=== PATIENT | female | born 1995 | race Caucasian/White ===

== ENCOUNTER 2016-12-17 09:47 | Emergency (ER) | payer OTHER ==
--- NOTE | 2016-12-17 11:02 | ED CLINICAL REPORT ---
Clinical Report - Physicians/Mid Levels [facility] [address] [place] [address] 12/17/2016 9:49 Patient: AN MORALES Time Seen: 09:53. Arrived- By private vehicle. Historian- patient. HISTORY OF PRESENT ILLNESS Chief Complaint: NECK PAIN. Onset was today and it is still present. Modifying factors. (Straightening her neck or moving her head to the right laterally causes pain in the right neck. Moving her head laterally to the left improves the pain.). It is described as being moderate in degree and in the area of the right side of the cervical spine and right trapezius and radiating to the right shoulder. The quality is noted to be "pain". Patient notes an injury. Mechanism of injury- (the patient states that she was stretching this morning while waking up in bed when she "pulled" her neck. Patient states she had her arm stretched above her head and rotated her head to the left when she suddenly felt a pop on the right side. She had a sudden pain which caused her to feel dizzy and had a brief loss of consciousness. Patient denies any pain in the spine itself. She denies any history of neck issues. Patient has otherwise been feeling fine. She states that now her neck is painful and stiff and that she has to keep her head cocked to the left side because if she straightens her neck out and causes pain in the lateral right neck.). No other injury. Similar symptoms previously: None. Recent medical care: Not recently seen/assessed. REVIEW OF SYSTEMS No fever, chills, eye discomfort, headache or sore throat. No cough, difficulty breathing, chest pain, skin rash or abdominal pain. No nausea, vomiting, diarrhea, black stools or difficulty with urination. No urinary frequency, hematuria or bloody stools. All systems otherwise negative, except as recorded above. PAST HISTORY Problems: Headache. Asthma. Additional Surgeries: . Medications: None. Allergies: Benadryl. Penicillin. Robitussin. SOCIAL HISTORY Former smoker. Occasional alcohol use. History of drug use: marijuana. ADDITIONAL NOTES The nursing notes have been reviewed. PHYSICAL EXAM Vital Signs: 12/17/2016 09:58 BP: 105/48. HR: 87. RR: 20. O2 saturation: 100%. Temp: 98.4 F. Have been reviewed. Appearance: Alert. No acute distress. HEENT: Normal external inspection. Eyes: Pupils equal, round and reactive to light. Neck: Moderate pain in the neck upon movement (with right lateral movement of the neck). No vertebral tenderness. Soft tissue tenderness (Patient has moderate tenderness over the superior most aspect of the right trapezius distribution.). No lymphadenopathy or meningeal signs. CVS: Normal heart rate and rhythm. Heart sounds normal. Pulses normal. Respiratory: No respiratory distress. Breath sounds normal. Back: Normal inspection. No tenderness. Skin: Skin warm and dry. Normal skin color. No rash. Normal skin turgor. Extremities: Extremities exhibit normal ROM. Neuro: Oriented X 3. Mood/affect normal. No motor deficit. No sensory deficit. LABS, X-RAYS, AND EKG Pulse Oximetry: 12/17/2016 09:58 O2 saturation: 100%. (FIO2 - room air). Interpretation: normal. PROGRESS AND PROCEDURES Course of Care: I did treat the patient symptomatically with IM Toradol, Flexeril, and hydrocodone. Patient was also given Zofran as she did feel nauseated after receiving the above medications. I discussed with the patient that I do not find evidence of a an emergent condition at this point. There is no evidence that the patient has injured her cervical spine and patient has no neurologic deficits. I discussed with her that most likely she has a muscle strain involving her right trapezius muscle. We have discussed symptomatic treatment for this and the typical timeline for healing. No emergent condition identified. Patient and family counseled in person regarding the patient's stable condition, diagnosis and need for follow-up. Concerns were addressed. Old medical records reviewed. Disposition: Discharged. Condition: stable and improved. CLINICAL IMPRESSION Acute cervical strain. INSTRUCTIONS Apply ice for 15-20 minutes three times a day followed by heat 15-20 minutes three times a day as needed and until better. Don't apply ice directly to skin, don't use while asleep and don't use high setting on heating pad (allow 20 minutes between ice and heat applications). Warnings: SEDATIVE MEDICATION: You were given sedative medication during your visit. Do not drive or operate dangerous machinery for 8 hours. GENERAL WARNINGS: Return or contact your physician immediately if your condition worsens or changes unexpectedly, if not improving as expected, or if other problems arise. Prescription Medications: Hydrocodone/APAP 5mg / 325mg: take 1-2 orally every 6 hours as needed for pain. Dispense ten (10). No refill. Ibuprofen 800 mg tablets: take 1 tablet orally every 8 hours as needed for pain. Dispense fifteen (15). No refill. Flexeril 10 mg: take 1 orally every 8 hours as needed for pain. Dispense ten (10). No refills. Substitution is permissible. Follow-up: Follow up with your doctor in three weeks if not better. Reason for referral: Discuss whether MRI is needed. Understanding of the discharge instructions verbalized by patient. (Electronically signed by Helen Mendoza MD 12/17/2016 13:41)
--- NOTE | 2016-12-17 11:02 | ED ORDER SUMMARY ---
..... Patient: AN MORALES OrderSheet [facility] VisitID: [id number] [address] [place] [address] 21y, F Registration Date/Time: 12/17/2016 ORDER SHEET Weight: 54.4 kg (stated) Allergies: Penicillin, Benadryl, Robitussin GENERAL ORDERS: MEDICATION ORDERS: Toradol IM 60 mg (NOW) (10:56 12/17/2016 Kenna BECKETT) (11:15 MWinterer R.N.) Flexeril PO 10 mg (NOW) (10:56 12/17/2016 Kenna BECKETT) (11:15 MWinterer R.N.) Hydrocodone-APAP PO 5/325 mg (NOW, HIGH ALERT MEDICATION) (10:56 12/17/2016 Kenna BECKETT) (11:16 MWinterer R.N.) Zofran ODT PO 4 mg (NOW) (11:28 12/17/2016 MWinterer R.N. verbal order read back to Kenna BECKETT) (11:29 MWinterer R.N.) IV FLUIDS: ORDER SHEET NOTES: [Electronically signed by Smitha Medina R.N. (13:33 12/17/2016)] [Electronically signed by Helen Mendoza MD (13:41 12/17/2016)] [Electronically locked/signed by Smitha Medina R.N. (13:33 12/17/2016)]
--- NOTE | 2016-12-17 11:02 | ED NURSING NOTES ---
Clinical Report - Nurses [facility] [address] [place] [address] 12/17/2016 9:49 Patient: AN MORALES TRIAGE Triage time 09:58 Dec 17 2016. Acuity: LEVEL 3. Chief Complaint: NECK PAIN. LULU COMA SCORE: Lulu Coma Scale: 15- eyes open spontaneously (4); best verbal response- oriented x 4 (5); best motor response- obeys commands (6). --10:05 Devendra Rodriges R.N. 09:58 12/17/16. BP: 105/48. HR: 87. RR: 20. O2 saturation: 100%. Temp: 98.4 F. Pain level now 04/29. --10:05 Devendra Rodriges R.N. <<STRICKEN ENTRY-- Weight: 544.3 kg stated. Height/Length: 62 inches Per Patient. BMI: 219.7. --END STRIKE>> Charted on wrong patient --10:03 Devendra Rodriges R.N.. Weight: 54.4 kg stated. Height/Length: 62 inches Per Patient. BMI: 22. --10:05 Devendra Rodriges R.N. Medications None. --10:02 Devendra Rodriges R.N. Allergies Penicillin. --10:02 Devendra Rodriges R.N. Benadryl. --10:03 Devendra Rodriges R.N. Robitussin. --10:03 Devendra Rodriges R.N. History Arrived by private vehicle. Historian: patient. Accompanied by friend. This started just prior to arrival. ( Was stretching this am and heard a pop of her neck and she blacked out. Patient was home alone with her kids and woke up to them on her bed. Now the right side of her neck is stuck in the stretched position if she tries to straighten it a severe pain comes.). No numbness, weakness, tingling, trouble walking or fever. No extremity pain. PAST MEDICAL HX: No history of diabetes mellitus, hypertension, heart disease or lung disease. Tetanus status: up-to-date. Immunizations: up-to-date. Last normal menstrual period- 2 weeks ago. SOCIAL HX: Former smoker, end date 2013. Occasional alcohol use. History of drug use: marijuana. SELF HARM ASSESSMENT: A self harm assessment was performed. The patient answered "no" to the question "Have you recently felt down, depressed, or hopeless?" and "Do you have thoughts of harming or killing yourself?". FALL RISK ASSESSMENT: Fall risk assessment completed. No fall risk identified. NUTRITIONAL RISK ASSESSMENT: The nutritional risk assessment revealed no deficiencies. FUNCTIONAL ASSESSMENT: Functional assessment: no impairments noted. LEARNING NEEDS ASSESSMENT: The learning needs assessment revealed no barriers. ABUSE ASSESSMENT: Abuse assessment: (yes) The patient was asked "Do you feel safe in your home?". SKIN INTEGRITY ASSESSMENT: Skin integrity risk assessment completed. No skin integrity risk identified. --10:05 Devendra Rodriges R.N. PROBLEMS: Headache. Asthma. --10:03 Devendra Rodriges R.N. ADDITIONAL SURGERIES: . --10:03 Devendra Rodriges R.N. Interventions ID band on patient. --10:05 Devendra Rodriges R.N. PHYSICAL ASSESSMENT Ambulatory to room. GENERAL / NEURO / PSYCH: Alert. Oriented X 4. Appears in pain. RESPIRATORY: Respirations not labored. Chest nontender. Breath sounds within normal limits. CVS: Normal heart rate and rhythm. Capillary refill less than 2 seconds. GI / : Abdomen soft and nontender. Bowel sounds within normal limits. ( Last BM yesterday and normal). EXTREMITIES: Sensation intact in extremities. ROM of extremities within normal limits. BACK: Limited ROM of the neck. Soft tissue tenderness. --10:06 Devendra Rodriges R.N. NURSING PROGRESS NOTES The initial plan of care for this patient includes an assessment with efforts to address patient positioning and appropriate ambient lighting; impairment of the musculoskeletal system. Cold pack applied. Patient gowned. Head of bed elevated 90 degrees. Reassurance given. Call light placed in reach. Side rails up x 1. Bed placed in lowest position. Brakes of bed on. --10:07 Devendra Rodriges R.N. 11:15 12/17/2016 Toradol (Ketorolac Tromethamine) IM 60 mg given. Given in the left gluteus urszula. Allergies verified and confirmed 5 rights. --11:15 Smitha Medina R.N. 11:15 12/17/2016 Flexeril (Cyclobenzaprine HCl) PO 10 mg given. Allergies verified and confirmed 5 rights. --11:15 Smitha Medina R.N. 11:15 12/17/2016 Zofran ODT (Ondansetron) PO 4 mg given. Allergies verified and confirmed 5 rights. --11:29 Smitha Medina R.N. 11:16 12/17/2016 Hydrocodone-APAP (Hydrocodone-Acetaminophen) PO 5/325 mg Tablets 1 tab given. Allergies verified, confirmed 5 rights and sedative warning given to the patient. --11:16 Smitha Medina R.N. DISPOSITION / DISCHARGE Departure time: 11:Dec 17 2016. Condition at departure: improved and stable. No learning barriers present. Discharge instructions provided and reviewed with the patient. Reviewed medication(s) side effects, precautions and dosing information. Prescription(s) given to the patient. Patient verbalized understanding. Written instructions provided in Salvadorean. The patient was discharged by the physician. She was discharged home and accompanied by pipe threading machine operator. She left the Emergency Department ambulatory and via private vehicle. Peripheral Edp Equipment Operator driving. --13:33 Smitha Medina R.N. 13:31 12/17/16. BP: 104/60. HR: 65. RR: 12. O2 saturation: 100% on room air. Temp: 98.4 F (oral). Pain level now: 09/29. --13:33 Smitha Medina R.N. Locked/Released at 12/17/2016 13:33 by Smitha Medina R.N.
--- NOTE | 2016-12-17 11:02 | ED NURSING NOTES ---
Clinical Report - Nurses [facility] [address] [place] [address] 12/17/2016 9:49 Patient: AN MORALES TRIAGE Triage time 09:58 Dec 17 2016. Acuity: LEVEL 3. Chief Complaint: NECK PAIN. LULU COMA SCORE: Lulu Coma Scale: 15- eyes open spontaneously (4); best verbal response- oriented x 4 (5); best motor response- obeys commands (6). --10:05 Devendra Rodriges R.N. 09:58 12/17/16. BP: 105/48. HR: 87. RR: 20. O2 saturation: 100%. Temp: 98.4 F. Pain level now 04/29. --10:05 Devendra Rodriges R.N. <<STRICKEN ENTRY-- Weight: 544.3 kg stated. Height/Length: 62 inches Per Patient. BMI: 219.7. --END STRIKE>> Charted on wrong patient --10:03 Devendra Rodriges R.N.. Weight: 54.4 kg stated. Height/Length: 62 inches Per Patient. BMI: 22. --10:05 Devendra Rodriges R.N. Medications None. --10:02 Devendra Rodriges R.N. Allergies Penicillin. --10:02 Devendra Rodriges R.N. Benadryl. --10:03 Devendra Rodriges R.N. Robitussin. --10:03 Devendra Rodriges R.N. History Arrived by private vehicle. Historian: patient. Accompanied by friend. This started just prior to arrival. ( Was stretching this am and heard a pop of her neck and she blacked out. Patient was home alone with her kids and woke up to them on her bed. Now the right side of her neck is stuck in the stretched position if she tries to straighten it a severe pain comes.). No numbness, weakness, tingling, trouble walking or fever. No extremity pain. PAST MEDICAL HX: No history of diabetes mellitus, hypertension, heart disease or lung disease. Tetanus status: up-to-date. Immunizations: up-to-date. Last normal menstrual period- 2 weeks ago. SOCIAL HX: Former smoker, end date 2013. Occasional alcohol use. History of drug use: marijuana. SELF HARM ASSESSMENT: A self harm assessment was performed. The patient answered "no" to the question "Have you recently felt down, depressed, or hopeless?" and "Do you have thoughts of harming or killing yourself?". FALL RISK ASSESSMENT: Fall risk assessment completed. No fall risk identified. NUTRITIONAL RISK ASSESSMENT: The nutritional risk assessment revealed no deficiencies. FUNCTIONAL ASSESSMENT: Functional assessment: no impairments noted. LEARNING NEEDS ASSESSMENT: The learning needs assessment revealed no barriers. ABUSE ASSESSMENT: Abuse assessment: (yes) The patient was asked "Do you feel safe in your home?". SKIN INTEGRITY ASSESSMENT: Skin integrity risk assessment completed. No skin integrity risk identified. --10:05 Devendra Rodriges R.N. PROBLEMS: Headache. Asthma. --10:03 Devendra Rodriges R.N. ADDITIONAL SURGERIES: . --10:03 Devendra Rodriges R.N. Interventions ID band on patient. --10:05 Devendra Rodriges R.N. PHYSICAL ASSESSMENT Ambulatory to room. GENERAL / NEURO / PSYCH: Alert. Oriented X 4. Appears in pain. RESPIRATORY: Respirations not labored. Chest nontender. Breath sounds within normal limits. CVS: Normal heart rate and rhythm. Capillary refill less than 2 seconds. GI / : Abdomen soft and nontender. Bowel sounds within normal limits. ( Last BM yesterday and normal). EXTREMITIES: Sensation intact in extremities. ROM of extremities within normal limits. BACK: Limited ROM of the neck. Soft tissue tenderness. --10:06 Devendra Rodriges R.N. NURSING PROGRESS NOTES The initial plan of care for this patient includes an assessment with efforts to address patient positioning and appropriate ambient lighting; impairment of the musculoskeletal system. Cold pack applied. Patient gowned. Head of bed elevated 90 degrees. Reassurance given. Call light placed in reach. Side rails up x 1. Bed placed in lowest position. Brakes of bed on. --10:07 Devendra Rodriges R.N. 11:15 12/17/2016 Toradol (Ketorolac Tromethamine) IM 60 mg given. Given in the left gluteus urszula. Allergies verified and confirmed 5 rights. --11:15 Smitha Medina R.N. 11:15 12/17/2016 Flexeril (Cyclobenzaprine HCl) PO 10 mg given. Allergies verified and confirmed 5 rights. --11:15 Smitha Medina R.N. 11:15 12/17/2016 Zofran ODT (Ondansetron) PO 4 mg given. Allergies verified and confirmed 5 rights. --11:29 Smitha Medina R.N. 11:16 12/17/2016 Hydrocodone-APAP (Hydrocodone-Acetaminophen) PO 5/325 mg Tablets 1 tab given. Allergies verified, confirmed 5 rights and sedative warning given to the patient. --11:16 Smitha Medina R.N. DISPOSITION / DISCHARGE Departure time: 11:Dec 17 2016. Condition at departure: improved and stable. No learning barriers present. Discharge instructions provided and reviewed with the patient. Reviewed medication(s) side effects, precautions and dosing information. Prescription(s) given to the patient. Patient verbalized understanding. Written instructions provided in Micronesian. The patient was discharged by the physician. She was discharged home and accompanied by it service continuity supervisor. She left the Emergency Department ambulatory and via private vehicle. Issue Clerk driving. --13:33 Smitha Medina R.N. 13:31 12/17/16. BP: 104/60. HR: 65. RR: 12. O2 saturation: 100% on room air. Temp: 98.4 F (oral). Pain level now: 09/29. --13:33 Smitha Medina R.N. Locked/Released at 12/17/2016 13:33 by Smitha Medina R.N.
--- NOTE | 2016-12-17 11:02 | ED ORDER SUMMARY ---
..... Patient: AN MORALES OrderSheet [facility] VisitID: [id number] [address] [place] [address] 21y, F Registration Date/Time: 12/17/2016 ORDER SHEET Weight: 54.4 kg (stated) Allergies: Penicillin, Benadryl, Robitussin GENERAL ORDERS: MEDICATION ORDERS: Toradol IM 60 mg (NOW) (10:56 12/17/2016 Kenna BECKETT) (11:15 MWinterer R.N.) Flexeril PO 10 mg (NOW) (10:56 12/17/2016 Kenna BECKETT) (11:15 MWinterer R.N.) Hydrocodone-APAP PO 5/325 mg (NOW, HIGH ALERT MEDICATION) (10:56 12/17/2016 Kenna BECKETT) (11:16 MWinterer R.N.) Zofran ODT PO 4 mg (NOW) (11:28 12/17/2016 MWinterer R.N. verbal order read back to Kenna BECKETT) (11:29 MWinterer R.N.) IV FLUIDS: ORDER SHEET NOTES: [Electronically signed by Smitha Medina R.N. (13:33 12/17/2016)] [Electronically signed by Helen Mendoza MD (13:41 12/17/2016)] [Electronically locked/signed by Smitha Medina R.N. (13:33 12/17/2016)]
--- NOTE | 2016-12-17 13:41 | ED DISCHARGE INSTRUCTIONS ---
Patient: AN MORALES General Instructions [facility] VisitID: [id number] [address] [place] [address] 21y, F Registration Date/Time: 12/17/2016 Acute cervical strain. INSTRUCTIONS Apply ice for 15-20 minutes three times a day followed by heat 15-20 minutes three times a day as needed and until better. Don't apply ice directly to skin, don't use while asleep and don't use high setting on heating pad (allow 20 minutes between ice and heat applications). Warnings: SEDATIVE MEDICATION: You were given sedative medication during your visit. Do not drive or operate dangerous machinery for 8 hours. GENERAL WARNINGS: Return or contact your physician immediately if your condition worsens or changes unexpectedly, if not improving as expected, or if other problems arise. Prescription Medications: Hydrocodone/APAP 5mg / 325mg: take 1-2 orally every 6 hours as needed for pain. Dispense ten (10). No refill. Ibuprofen 800 mg tablets: take 1 tablet orally every 8 hours as needed for pain. Dispense fifteen (15). No refill. Flexeril 10 mg: take 1 orally every 8 hours as needed for pain. Dispense ten (10). No refills. Substitution is permissible. Follow-up: Follow up with your doctor in three weeks if not better. Reason for referral: Discuss whether MRI is needed. Understanding of the discharge instructions verbalized by patient. ADDITIONAL INFORMATION Neck Sprain Or Strain A sudden force that causes turning or bending of the neck (such as in a car accident) can stretch or tear muscles (strain) and ligaments (sprain) and cause neck pain. Sometimes neck pain occurs after a simple awkward movement. In either case, muscle spasm is commonly present and contributes to the pain. Unless you had a forceful physical injury (for example, a car accident or fall), X-rays are usually not ordered for the initial evaluation of neck pain. If pain continues and dose not respond to medical treatment, X-rays and other tests may be performed at a later time. Home care The following guidelines will help you care for your injury at home: You may feel more soreness and spasm the first few days after the injury. Reduce your activity level until symptoms begin to improve. When lying down, use a comfortable pillow that supports the head and keeps the spine in a neutral position. The position of the head should not be tilted forward or backward. Use ice packs (ice in a plastic bag, wrapped in a towel) to treat acute pain. Apply for 20 minutes every 24 hours during the first two days. Then, begin local heat (hot shower, hot bath or heating pad) andmassageto reduce muscle spasm. Some patients feel best alternating hot and cold treatments, or just staying with one method only. Do what feels the best to you and gives the most relief. You may use acetaminophen or ibuprofen to control pain, unless another pain medicine was prescribed.If you have chronic liver or kidney disease or ever had a stomach ulcer or GI bleeding, talk with your doctor before using these medicines. Follow-up care Follow up with your physician or this facility if your symptoms do not show signs of improvement. Physical therapy may be needed. If you had X-rays today, they didnt show any broken bones, breaks, or fractures. Sometimes fractures dont show up on the first X-ray. Bruises and sprains can sometimes hurt as much as a fracture. These injuries can take time to heal completely. If your symptoms dont improve or they get worse, talk with your doctor. You may need a repeat X-ray. When to seek medical care Get prompt medical attention if any of the following occur: Pain becomes worse or spreads into your arms Weakness or numbness in one or both arms You have been given the following additional information: Neck Sprain/Strain (Electronically signed by Helen Mendoza MD 12/17/2016 13:41)
--- NOTE | 2016-12-17 13:41 | ED MED RECONCILIATION SUMMARY ---
Patient: AN MORALES Medication Reconciliation Report [facility] VisitID: [id number] [address] [place] [address] 21y, F Registration Date/Time: 12/17/2016 Weight: 54.4 kg Height/Length: 62 in. BMI: 22.0 ALLERGIES: Benadryl, Penicillin, Robitussin The patient's Home Medications are listed below: NONE. The source(s) of the original Home Medication information: Not obtained. The following Medications were given to the patient in the Emergency Department: Toradol [IM] IM 60 mg, administered: 12/17/2016 11:15:00 AM Flexeril [PO] PO 10 mg, administered: 12/17/2016 11:15:00 AM Hydrocodone-APAP [PO] PO 1 tab, administered: 12/17/2016 11:16:00 AM Zofran ODT [PO] PO 4 mg, administered: 12/17/2016 11:15:00 AM The following Medications were prescribed to the patient: Hydrocodone/APAP 5mg / 325mg: take 1-2 orally every 6 hours as needed for pain. Dispense ten (10). No refill. -- Helen Mendoza MD Ibuprofen 800 mg tablets: take 1 tablet orally every 8 hours as needed for pain. Dispense fifteen (15). No refill. -- Helen Mendoza MD Flexeril 10 mg: take 1 orally every 8 hours as needed for pain. Dispense ten (10). No refills. Substitution is permissible. -- Helen Mendoza MD
--- NOTE | 2016-12-17 13:41 | ED MAR SUMMARY ---
..... Medication Administration Record [facility] [address] [place] [address] Patient: AN MORALES Visit ID: [id number] 21y, F Weight: 54.4 kg Height/Length: 62 in BMI: 22 ALLERGIES: Robitussin, Benadryl, Penicillin Given 11:12/17/2016 Smitha Medina RRoselynNRoselyn Medication Administered: TORADOL [IM] (KETOROLAC TROMETHAMINE), Dose: 60 mg IM. Medication Ordered: Toradol IM 60 mg (NOW). Given 11:12/17/2016 Smitha Medina R.NRoselyn Medication Administered: FLEXERIL [PO] (CYCLOBENZAPRINE HCL), Dose: 10 mg PO. Medication Ordered: Flexeril PO 10 mg (NOW). Given 11:12/17/2016 Smitha Medina RRoselynNRoselyn Medication Administered: ZOFRAN ODT [PO] (ONDANSETRON), Dose: 4 mg PO. Medication Ordered: Zofran ODT PO 4 mg (NOW). Given 11:16 12/17/2016 Smitha Medina, RRoselynN. Medication Administered: HYDROCODONE-APAP [PO] (HYDROCODONE-ACETAMINOPHEN), Dose: 1 tab 5/325 mg Tablets PO. Medication Ordered: Hydrocodone-APAP PO 5/325 mg (NOW, HIGH ALERT MEDICATION).
--- NOTE | 2016-12-17 13:41 | ED MAR SUMMARY ---
..... Medication Administration Record [facility] [address] [place] [address] Patient: AN MORALES Visit ID: [id number] 21y, F Weight: 54.4 kg Height/Length: 62 in BMI: 22 ALLERGIES: Robitussin, Benadryl, Penicillin Given 11:12/17/2016 Smitha Medina RRoselynNRoselyn Medication Administered: TORADOL [IM] (KETOROLAC TROMETHAMINE), Dose: 60 mg IM. Medication Ordered: Toradol IM 60 mg (NOW). Given 11:12/17/2016 Smitha Medina R.NRoselyn Medication Administered: FLEXERIL [PO] (CYCLOBENZAPRINE HCL), Dose: 10 mg PO. Medication Ordered: Flexeril PO 10 mg (NOW). Given 11:12/17/2016 Smitha Medina RRoselynNRoselyn Medication Administered: ZOFRAN ODT [PO] (ONDANSETRON), Dose: 4 mg PO. Medication Ordered: Zofran ODT PO 4 mg (NOW). Given 11:16 12/17/2016 Smitha Medina, RRoselynN. Medication Administered: HYDROCODONE-APAP [PO] (HYDROCODONE-ACETAMINOPHEN), Dose: 1 tab 5/325 mg Tablets PO. Medication Ordered: Hydrocodone-APAP PO 5/325 mg (NOW, HIGH ALERT MEDICATION).
--- NOTE | 2016-12-17 13:41 | ED MED RECONCILIATION SUMMARY ---
Patient: AN MORALES Medication Reconciliation Report [facility] VisitID: [id number] [address] [place] [address] 21y, F Registration Date/Time: 12/17/2016 Weight: 54.4 kg Height/Length: 62 in. BMI: 22.0 ALLERGIES: Benadryl, Penicillin, Robitussin The patient's Home Medications are listed below: NONE. The source(s) of the original Home Medication information: Not obtained. The following Medications were given to the patient in the Emergency Department: Toradol [IM] IM 60 mg, administered: 12/17/2016 11:15:00 AM Flexeril [PO] PO 10 mg, administered: 12/17/2016 11:15:00 AM Hydrocodone-APAP [PO] PO 1 tab, administered: 12/17/2016 11:16:00 AM Zofran ODT [PO] PO 4 mg, administered: 12/17/2016 11:15:00 AM The following Medications were prescribed to the patient: Hydrocodone/APAP 5mg / 325mg: take 1-2 orally every 6 hours as needed for pain. Dispense ten (10). No refill. -- Helen Mendoza MD Ibuprofen 800 mg tablets: take 1 tablet orally every 8 hours as needed for pain. Dispense fifteen (15). No refill. -- Helen Mendoza MD Flexeril 10 mg: take 1 orally every 8 hours as needed for pain. Dispense ten (10). No refills. Substitution is permissible. -- Helen Mendoza MD
== END 2016-12-17 11:20 | disposition home or self-care (01) ==
LOC: ED SRH 09:47
DX: S16.1XXA Strain of muscle, fascia and tendon at neck level, initial encounter (principal); X58.XXXA Exposure to other specified factors, initial encounter; Y93.89 Activity, other specified; Y92.019 Unspecified place in single-family (private) house as the place of occurrence of the external cause; Y99.9 Unspecified external cause status; Z87.891 Personal history of nicotine dependence; Z88.0 Allergy status to penicillin; Z88.8 Allergy status to other drugs, medicaments and biological substances